=== PATIENT | female | born 1955 | race Caucasian/White ===

== ENCOUNTER 2018-05-18 08:50 | Emergency (ER) | payer MEDICAID ==
--- NOTE | 2018-05-18 10:28 | EDPHYS ---
Physician Documentation [facility] Name: Alisson Reid Age: 62 yrs Sex: Female : 1955 Arrival Date: 05/18/2018 Time: 08:52 Bed 30 Private MD: Rakesh Bean E ED Physician Jose Roberto Tyler HPI: 05/18 10:15 This 62 yrs old Female presents to ER via Ambulatory with complaints of Ear cp Pain, Drainage. 10:15 The patient presents with drainage, that is purulent, a foreign body sensation, pain, cp that is acute. The complaints affect the left ear. Onset: The symptoms/episode began/occurred gradually. Associated signs and symptoms: Pertinent negatives: cough, fever, sore throat, vomiting. Severity of symptoms: in the emergency department the symptoms are unchanged despite home interventions. Historical: - Allergies: 08:57 No Known Allergies; sg - Home Meds: 08:57 None [Active]; sg - PMHx: 08:57 None; sg - PSHx: 08:57 None; sg - Immunization history:: Adult Immunizations not up to date. - Social history:: Smoking status: Patient/guardian denies using tobacco. - Ebola Screening: : Patient negative for fever greater than or equal to 101.5 degrees Fahrenheit, and additional compatible Ebola Virus Disease symptoms Patient denies exposure to infectious person Patient denies travel to an Ebola-affected area in the 21 days before illness onset No symptoms or risks identified at this time. ROS: 10:20 Constitutional: Negative for body aches, chills, fever, poor PO intake. cp 10:20 Eyes: Negative for injury, pain, redness, and discharge. cp 10:20 ENT: Positive for drainage from ear(s), ear pain, Negative for nasal discharge, rhinorrhea, sinus congestion, sore throat, difficulty swallowing, difficulty handling secretions. 10:20 Respiratory: Negative for cough, shortness of breath, wheezing. 10:20 Abdomen/GI: Negative for abdominal pain, nausea, vomiting, and diarrhea. 10:20 Skin: Negative for cellulitis, rash. 10:20 Neuro: Negative for headache. 10:20 All other systems are negative. Exam: 10:20 Head/Face: Normocephalic, atraumatic. cp 10:20 Constitutional: The patient appears in no acute distress, alert, awake, non-toxic, well developed, well nourished. 10:20 Eyes: Periorbital structures: appear normal, Conjunctiva: normal, no exudate, no injection, Sclera: no appreciated abnormality, Lids and lashes: appear normal, bilaterally. 10:20 ENT: External ear(s): are unremarkable, Ear canal(s): purulent discharge, that is moderate, in the left canal, TM's: rupture, on the left, with purulent discharge, Examination of the other ear shows no obvious abnormality, Nose: is normal, Mouth: is normal, Posterior pharynx: Airway: no evidence of obstruction, patent, Tonsils: are normal in appearance, swelling, is not appreciated, erythema, is not appreciated, exudate, is not appreciated, Voice: is normal. 10:20 Neck: ROM/movement: is normal, is supple, without pain, no range of motions limitations, no meningismus, no nuchal rigidity. 10:20 Chest/axilla: Inspection: normal. 10:20 Cardiovascular: Rate: tachycardic, Rhythm: regular. 10:20 Respiratory: the patient does not display signs of respiratory distress, Respirations: normal, no use of accessory muscles, no retractions, no splinting, no tachypnea, Breath sounds: are clear throughout, no decreased breath sounds, no stridor, no wheezing. 10:20 Skin: cellulitis, is not appreciated, no rash present. 10:20 Neuro: Orientation: to person, place \T\ time. Mentation: is normal, Cerebellar function: is grossly normal, Motor: is normal, Gait: is steady, at a normal pace, without difficulty. Vital Signs: 08:56 BP 134 / ???; Pulse 108; Resp 17; Temp 98.2; Pulse Ox 98% on R/A; Weight 47.63 kg; sg Height 5 ft. 3 in. (160.02 cm); Pain 6/10; 08:56 Body Mass Index 18.60 (47.63 kg, 160.02 cm) sg MDM: 10:08 Patient medically screened. cp 10:25 Differential diagnosis: otitis media, otitis externa, ruptured TM, foreign body, cp cerumen impaction. 10:26 Data reviewed: vital signs, nurses notes, and as a result, I will discharge patient. cp 10:26 Counseling: I had a detailed discussion with the patient and/or guardian regarding: the cp historical points, exam findings, and any diagnostic results supporting the discharge/admit diagnosis, the need for outpatient follow up, an ENT specialist, to return to the emergency department if symptoms worsen or persist or if there are any questions or concerns that arise at home. Administered Medications: No medications were administered Disposition: 05/18/18 10:27 Discharged to Home. Impression: Other marginal perforations of tympanic membrane, left ear. - Condition is Stable. - Discharge Instructions: Eardrum Rupture, Adult. - Prescriptions for Augmentin 875- 125 mg Oral Tablet - take 1 tablet by ORAL route every 12 hours for 10 days; 20 tablet. Ciprodex 0.3- 0.1 % Otic Drops, Suspension - instill 4 drops by OTIC route every 12 hours for 7 days , for ears ONLY. instill drops in left ear canal; 1 Container. - Medication Reconciliation Form, Thank You Letter, Antibiotic Education, Prescription Opioid Use form. - Follow up: Bridgette Hernandez MD; When: 1 week; Reason: Recheck today's complaints. - Problem is new. - Symptoms are unchanged. Addendum: 05/19/2018 12:37 Co-signature as Attending Physician, Jose Roberto Tyler MD. r n Signatures: Milton Sawant RN RN Jose Roberto Cramer MD MD rn Smirch, Shelby, RN RN ss Page, Corey, PA PA cp Corrections: (The following items were deleted from the chart) 05/18 10:38 10:27 05/18/2018 10:27 Discharged to Home. Impression: Other marginal perforations of ss tympanic membrane, left ear. Condition is Stable. Forms are Medication Reconciliation Form, Thank You Letter, Antibiotic Education, Prescription Opioid Use. Follow up: Bridgette Hernandez; When: 1 week; Reason: Recheck today's complaints. Problem is new. Symptoms are unchanged. cp
--- NOTE | 2018-05-18 10:28 | ER ---
Nurse's Notes [facility] Name: Alisson Reid Age: 62 yrs Sex: Female : 1955 Arrival Date: 05/18/2018 Time: 08:52 Bed 30 Private MD: Rakesh Bean E Diagnosis: Other marginal perforations of tympanic membrane, left ear Presentation: 05/18 08:55 Presenting complaint: Patient states: Feels like something is stuck in my left ear, sg reports drainage that is yellow and fungus like, reports happened to the right ear but that cleared up. Transition of care: patient was not received from another setting of care. Onset of symptoms was May 18, 2018. Risk Assessment: Do you want to hurt yourself or someone else? Patient reports no desire to harm self or others. Initial Sepsis Screen: Does the patient meet any 2 criteria? No. Patient's initial sepsis screen is negative. Does the patient have a suspected source of infection?. Care prior to arrival: None. 08:55 Method Of Arrival: Ambulatory 08:55 Acuity: DELTA 4 sg Historical: - Allergies: 08:57 No Known Allergies; sg - Home Meds: 08:57 None [Active]; sg - PMHx: 08:57 None; sg - PSHx: 08:57 None; sg - Immunization history:: Adult Immunizations not up to date. - Social history:: Smoking status: Patient/guardian denies using tobacco. - Ebola Screening: : Patient negative for fever greater than or equal to 101.5 degrees Fahrenheit, and additional compatible Ebola Virus Disease symptoms Patient denies exposure to infectious person Patient denies travel to an Ebola-affected area in the 21 days before illness onset No symptoms or risks identified at this time. Screenin:57 Abuse screen: Denies threats or abuse. Denies injuries from another. Nutritional ss screening: No deficits noted. Tuberculosis screening: No symptoms or risk factors identified. Never had TB. Fall Risk None identified. Assessment: 09:57 General: Appears in no apparent distress. comfortable, Behavior is calm, cooperative, ss talkative . Pain: Denies pain. Neuro: Level of Consciousness is awake, alert, obeys commands, Oriented to person, place, time, situation, Speech is normal, Facial symmetry appears normal, Pupils are PERRLA. Cardiovascular: Capillary refill < 3 seconds is brisk in bilateral fingers Patient's skin is warm and dry. Respiratory: Airway is patent Respiratory effort is even, unlabored, Respiratory pattern is regular, symmetrical. GI: Patient currently denies abdominal pain, diarrhea, nausea, vomiting. : No signs and/or symptoms were reported regarding the genitourinary system. EENT: Nares are clear Oral mucosa is moist. Throat is clear. EENT: Reports drainage from L ear x 5 days. Is "watery". Attempted to to put hydrogen peroxide in affected ear and reported increased watery discharge.. Derm: Skin is intact, is healthy with good turgor, Skin is dry, Skin is pink, warm \\T\\ dry. Skin temperature is warm. Musculoskeletal: Circulation, motion, and sensation intact. Range of motion: intact in all extremities, Swelling absent. Vital Signs: 08:56 BP 134 / ???; Pulse 108; Resp 17; Temp 98.2; Pulse Ox 98% on R/A; Weight 47.63 kg; sg Height 5 ft. 3 in. (160.02 cm); Pain 6/10; 08:56 Body Mass Index 18.60 (47.63 kg, 160.02 cm) sg ED Course: 08:52 Patient arrived in ED. sb2 08:53 Rakesh Bean MD is Private Physician. sb2 08:56 Triage completed. sg 08:56 Arm band placed on. sg 09:56 Vivian Soni, [place] is Primary Nurse. ss 09:57 Patient has correct armband on for positive identification. Bed in low position. Call ss light in reach. 09:57 Patient maintains SpO2 saturation greater than 95% on room air. ss 10:08 Juan Hdz PA is PHCP. cp 10:08 Jose Roberto Tyler MD is Attending Physician. cp 10:26 Bridgette Hernandez MD is Referral Physician. cp 10:37 No provider procedures requiring assistance completed. Patient did not have IV access ss during this emergency room visit. Administered Medications: No medications were administered Outcome: 10:27 Discharge ordered by . cp 10:37 Discharged to home ambulatory. ss 10:37 Condition: good 10:37 Discharge instructions given to patient, Instructed on discharge instructions, follow up and referral plans. medication usage, Demonstrated understanding of instructions, follow-up care, medications, Prescriptions given X 2. 10:38 Patient left the ED. ss Signatures: Milton Sawant RN RN sg Vivian Soni RN RN ss Juan Hdz PA PA cp Billeau, Sheri sb2
== END 2018-05-18 10:38 | disposition home or self-care (01) ==
LOC: ER 08:50
DX: H72.2X2 Other marginal perforations of tympanic membrane, left ear (principal)
CPT/HCPCS: 99284